=== PATIENT | male | born 1985 | race Hispanic/Latino ===

== ENCOUNTER 2022-08-30 19:30 | Outpatient (CLI) | payer OTHER | END 2022-08-30 19:31 | disposition home or self-care (01) | LOC: SLEEPLAB 19:30 | PROVIDERS: ATTEND Student in an Organized Health Care Education/Training Program | DX: R06.83 Snoring (principal); E66.9 Obesity, unspecified; G47.00 Insomnia, unspecified; I10 Essential (primary) hypertension; R51.9 Headache, unspecified; R35.1 Nocturia; R06.81 Apnea, not elsewhere classified | CPT/HCPCS: 95810 ==